=== PATIENT | female | born 1985 | race Two or more races ===

== ENCOUNTER 2017-07-13 19:30 | Emergency (ER) | payer SELFPAY ==
[~2017-07-13] VITALS: Ht 160 cm; Wt 63.5 kg
[2017-07-13] MEDS ORDERED: IV NORMAL SALINE 1000ML BAG 1,000 ML IV ONE (20:30)
[2017-07-13] MEDS ORDERED: diphenhydrAMINE 50 MG/ML VIAL IVP ONE (20:30)
[2017-07-13] MEDS ORDERED: DEXAMETHASONE SOD PHOS 20 MG/5 ML VIAL. IV ONE (20:30)
[2017-07-13] MEDS ORDERED: KETOROLAC 30 MG/ML INJ. IV ONE (20:30)
[2017-07-13] MEDS ORDERED: PROCHLORPERAZINE 10 MG/2 ML VIAL. IV ONE (20:30)
[2017-07-13] MEDS ORDERED: PROM25TA10 PO (21:11)
[2017-07-13] MEDS ORDERED: SUMA50TA3 PO (21:11)
--- NOTE | 2017-07-13 21:12 | PHYS DOC ---
Past Medical History Past Medical History: No Pertinent History Past Surgical History: No Surgical History Alcohol Use: None Drug Use: None Adult General Chief Complaint Chief Complaint: HEADACHE HPI HPI Patient is a 31 year old female who presents with a throbbing moderate left- sided headache with nausea and vomiting that began today. Patient denies any fever. Patient states her headache is exacerbated with light. She states she has previous history of similar headaches. Denies this being the worst headache in her life. [employer] line was used for Hebrew. Review of Systems Review of Systems Constitutional: Denies fever or chills [] Eyes: Denies change in visual acuity, redness, or eye pain [] HENT: Denies nasal congestion or sore throat [] Respiratory: Denies cough or shortness of breath [] Cardiovascular: No additional information not addressed in HPI [] GI: Reports nausea and vomiting. Denies abdominal pain, bloody stools or diarrhea [] : Denies dysuria or hematuria [] Musculoskeletal: Left sided headache Integument: Denies rash or skin lesions [] Neurologic: Denies headache, focal weakness or sensory changes [] All other systems were reviewed and found to be within normal limits, except as documented in this note. Current Medications Current Medications Current Medications Medications (Trade) Dose Ordered Sig/Yady Start Time Stop Time Status Last Admin Dose Admin Dexamethasone Sodium Phosphate (Decadron) 10 mg 1X ONCE 07/13/17 20:30 07/13/17 20:31 DC 07/13/17 20:27 10 MG Diphenhydramine HCl (Benadryl) 25 mg 1X ONCE 07/13/17 20:30 07/13/17 20:31 DC 07/13/17 20:27 25 MG Ketorolac Tromethamine (Toradol) 30 mg 1X ONCE 07/13/17 20:30 07/13/17 20:31 DC 07/13/17 20:26 30 MG Prochlorperazine Edisylate (Compazine) 10 mg 1X ONCE 07/13/17 20:30 07/13/17 20:31 DC 07/13/17 20:26 10 MG Sodium Chloride 1,000 ml @ 1,000 mls/hr 1X ONCE 07/13/17 20:30 07/13/17 21:29 07/13/17 20:28 1,000 MLS/HR Allergies Allergies Allergies Coded Allergies Type Severity Reaction Last Updated Verified No Known Drug Allergies 10/23/15 No Physical Exam Physical Exam Constitutional: Well developed, well nourished, no acute distress, non-toxic appearance. [] HENT: Normocephalic, atraumatic, bilateral external ears normal, oropharynx moist, no oral exudates, nose normal. [] Eyes: PERRLA, EOMI, conjunctiva normal, no discharge. [] Neck: Normal range of motion, no tenderness, supple, no stridor. [] Cardiovascular:Heart rate regular rhythm, no murmur [] Lungs & Thorax: Bilateral breath sounds clear to auscultation [] Abdomen: Bowel sounds normal, soft, no tenderness, no masses, no pulsatile masses. [] Skin: Warm, dry, no erythema, no rash. [] Back: No tenderness, no CVA tenderness. [] Extremities: No tenderness, no cyanosis, no clubbing, ROM intact, no edema. [] Neurologic: Alert and oriented X 3, normal motor function, normal sensory function, no focal deficits noted. Cranial nerves II through XII intact Psychologic: Affect normal, judgement normal, mood normal. [] Current Patient Data Vital Signs Vital Signs Date Time Temp Pulse Resp B/P (MAP) Pulse Ox O2 Delivery O2 Flow Rate FiO2 07/13/17 20:06 99.1 88 20 164/78 (106) 99 Room Air 99.1 Lab Values Laboratory Tests Test 07/13/17 20:09 POC Urine HCG, Qualitative Hcg negative (Negative) EKG EKG [] Radiology/Procedures Radiology/Procedures [] Course & Med Decision Making Course & Med Decision Making Pertinent Labs and Imaging studies reviewed. (See chart for details) Patient is in the ED with a headache consistent of a migraine headache. She was given 1 L of IV fluids Toradol, Compazine, and Benadryl with good relief. She' ll be discharged with Imitrex and follow-up with her PCP. Amanda Disclaimer Amanda Disclaimer This electronic medical record was generated, in whole or in part, using a voice recognition dictation system. Departure Departure Impression: Primary Impression: Migraine headache Disposition: HOME, SELF-CARE Condition: STABLE Referrals: NO PCP (PCP) DIANE SINHA MD follow up with your doctor in one week or the provided doctor Patient Instructions: Migraine Headache, [id number] Additional Instructions: You were seen with a migraine headache. Take the prescribed medicines as needed and ordered. Follow-up with your own doctor in 1-2 weeks. Scripts Sumatriptan Succinate (IMITREX) 50 Mg Tablet 1 TAB PO UD, #9 TAB 1 Refill Prov: ROXANN JAMES APRN 07/13/17 Promethazine Hcl (PROMETHAZINE HCL) 25 Mg Tablet 1 TAB PO PRN Q6HRS, #20 TAB Prov: ROXANN JAMES APRN 07/13/17 Problem Qualifiers Primary Impression: Migraine headache Migraine type: without aura Status migrainosus presence: without status migrainosus Intractability: not intractable Qualified Codes: G43.009 - Migraine without aura, not intractable, without status migrainosus ROXANN JAMES APRN Jul 13, 2017 21:12
[2017-07-13 21:29] VITALS: BP 122/63
== END 2017-07-13 21:51 | disposition home or self-care (01) ==
LOC: ER 19:30
DX: G43.909 Migraine, unspecified, not intractable, without status migrainosus (principal)
CPT/HCPCS: 81025; 96361; 96374; 96375; 99284; J0780; J1100; J1200; J1885; J7030

== ENCOUNTER 2017-07-14 02:29 | Emergency (ER) | payer SELFPAY ==
[~2017-07-14] VITALS: Ht 152.4 cm; Wt 63.5 kg
[~2017-07-14 02:29] MED LIST: PROM25TA10 PO; SUMA50TA3 PO
--- NOTE | 2017-07-14 02:35 | PHYS DOC ---
Past Medical History Past Medical History: No Pertinent History Past Surgical History: No Surgical History Alcohol Use: None Drug Use: None Adult General Chief Complaint Chief Complaint: DIZZY/LIGHT HEADED HPI HPI Patient is a 31 year old female who presents with dizziness, shortness of breath, dry lips, dry mouth. She was seen earlier today and vomited twice and had a headache. She was given Compazine, Benadryl, Toradol and discharged home with Imitrex and Phenergan. She was unable to get these filled because pharmacies closed. She presents back complaining of the above symptoms. She states she has no past medical history, she is on no medicines. She states she feels short of breath worse when she lays flat. She states all these symptoms started after she received the Compazine, Benadryl, Toradol, and accommodation. Review of Systems Review of Systems Constitutional: Denies fever or chills [] Eyes: Denies change in visual acuity, redness, or eye pain [] HENT: Denies nasal congestion or sore throat [] Respiratory: Denies cough, positive for shortness of breath [] Cardiovascular: No additional information not addressed in HPI [] GI: Denies abdominal pain, nausea, vomiting, bloody stools or diarrhea [] : Denies dysuria or hematuria [] Musculoskeletal: Denies back pain or joint pain [] Integument: Denies rash or skin lesions [] Neurologic: Denies headache, focal weakness or sensory changes [] Endocrine: Denies polyuria or polydipsia [] All other systems were reviewed and found to be within normal limits, except as documented in this note. Current Medications Current Medications Current Medications Medications (Trade) Dose Ordered Sig/Yady Start Time Stop Time Status Last Admin Dose Admin Sodium Chloride 1,000 ml @ 1,000 mls/hr Q1H 07/14/17 03:00 07/14/17 03:59 DC 07/14/17 03:25 1,000 MLS/HR Allergies Allergies Allergies Coded Allergies Type Severity Reaction Last Updated Verified No Known Drug Allergies 10/23/15 No Physical Exam Physical Exam Constitutional: Well developed, well nourished, no acute distress, non-toxic appearance. [] HENT: Normocephalic, atraumatic, bilateral external ears normal, oropharynx moist, no oral exudates, nose normal. [] Eyes: PERRLA, EOMI, conjunctiva normal, no discharge. [] Neck: Normal range of motion, no tenderness, supple, no stridor. [] Cardiovascular:Heart rate regular rhythm, no murmur [] Lungs & Thorax: Bilateral breath sounds clear to auscultation [] Abdomen: Bowel sounds normal, soft, no tenderness, no masses, no pulsatile masses. [] Skin: Warm, dry, no erythema, no rash. [] Back: No tenderness, no CVA tenderness. [] Extremities: No tenderness, no cyanosis, no clubbing, ROM intact, no edema. [] Neurologic: Alert and oriented X 3, normal motor function, normal sensory function, no focal deficits noted. [] Psychologic: Affect normal, judgement normal, mood normal. [] Current Patient Data Vital Signs Vital Signs Date Time Temp Pulse Resp B/P (MAP) Pulse Ox O2 Delivery O2 Flow Rate FiO2 07/14/17 02:40 98.6 99 16 145/85 (105) 97 Room Air 98.6 Lab Values Laboratory Tests Test 07/14/17 02:15 07/14/17 03:10 Urine Collection Type Unknown Urine Color Yellow Urine Clarity Clear Urine pH 7.0 Urine Specific [place] 1.010 Urine Protein Negative mg/dL (NEG-TRACE) Urine Glucose (UA) 100 mg/dL (NEG) Urine Ketones (Stick) Negative mg/dL (NEG) Urine Blood Negative (NEG) Urine Nitrite Negative (NEG) Urine Bilirubin Negative (NEG) Urine Urobilinogen Dipstick 0.2 mg/dL (0.2 mg/dL) Urine Leukocyte Esterase Negative (NEG) Urine RBC 0 /HPF (0-2) Urine WBC Occ /HPF (0-4) Urine Squamous Epithelial Cells Few /LPF Urine Bacteria 0 /HPF (0-FEW) Urine Mucus Slight /LPF White Blood Count 6.4 x10^3/uL (4.0-11.0) Red Blood Count 4.43 x10^6/uL (3.50-5.40) Hemoglobin 13.9 g/dL (12.0-15.5) Hematocrit 40.8 % (36.0-47.0) Mean Corpuscular Volume 92 fL (79-100) Mean Corpuscular Hemoglobin 32 pg (25-35) Mean Corpuscular Hemoglobin Concent 34 g/dL (31-37) Red Cell Distribution Width 13.1 % (11.5-14.5) Platelet Count 183 x10^3/uL (140-400) Neutrophils (%) (Auto) 83 % (31-73) H Lymphocytes (%) (Auto) 15 % (24-48) L Monocytes (%) (Auto) 1 % (0-9) Eosinophils (%) (Auto) 0 % (0-3) Basophils (%) (Auto) 0 % (0-3) Neutrophils # (Auto) 5.3 x10^3uL (1.8-7.7) Lymphocytes # (Auto) 1.0 x10^3/uL (1.0-4.8) Monocytes # (Auto) 0.1 x10^3/uL (0.0-1.1) Eosinophils # (Auto) 0.0 x10^3/uL (0.0-0.7) Basophils # (Auto) 0.0 x10^3/uL (0.0-0.2) D-Dimer (Alma Delia) 0.34 ug/mlFEU (0.00-0.50) Sodium Level 141 mmol/L (136-145) Potassium Level 3.6 mmol/L (3.5-5.1) Chloride Level 103 mmol/L (98-107) Carbon Dioxide Level 24 mmol/L (21-32) Anion Gap 14 (6-14) Blood Urea Nitrogen 10 mg/dL (7-20) Creatinine 0.7 mg/dL (0.6-1.0) Estimated GFR (Cockcroft-Gault) 96.4 BUN/Creatinine Ratio 14 (6-20) Glucose Level 176 mg/dL (70-99) H Calcium Level 9.2 mg/dL (8.5-10.1) Magnesium Level 2.1 mg/dL (1.8-2.4) Total Bilirubin 0.5 mg/dL (0.2-1.0) Aspartate Amino Transferase (AST) 36 U/L (15-37) Alanine Aminotransferase (ALT) 97 U/L (14-59) H Alkaline Phosphatase 96 U/L (46-116) Creatine Kinase 144 U/L (26-192) Creatine Kinase MB (Mass) 1.0 ng/mL (0.0-3.6) Creatine Kinase MB Relative Index 0.7 % (0-4) Troponin I Quantitative < 0.017 ng/mL (0.000-0.055) NG-Mfn-V-Type Natriuretic Peptide 91 pg/mL (0-124) Total Protein 8.2 g/dL (6.4-8.2) Albumin 4.5 g/dL (3.4-5.0) Albumin/Globulin Ratio 1.2 (1.0-1.7) Serum Test, Qualitative Negative (NEG) Laboratory Tests 07/14/17 03:10 Laboratory Tests 07/14/17 03:10 EKG EKG EKG shows sinus rhythm rate [address] elevations or concerning T- wave inversions, normal axis, QTC 456 ms, as interpreted by me. Radiology/Procedures Radiology/Procedures View chest x-ray did not show any focal consolidations, bony abnormality's, pneumothorax, as interpreted by me. Impressions: Dizziness-resolved Hypoglycemia Course & Med Decision Making Course & Med Decision Making Pertinent Labs and Imaging studies reviewed. (See chart for details) Her EKG, chest x-ray, labs, d-dimer all within normal limits. Patient feels better. She's being discharged home to follow-up primary care physician. She is instructed to fill her prescription she got earlier for Imitrex and Phenergan. Return ER for fevers shortness breath chest discomfort other concerns. Dragon Disclaimer Dragon Disclaimer This electronic medical record was generated, in whole or in part, using a voice recognition dictation system. Departure Departure Impression: Primary Impression: Dizziness Disposition: 01 HOME, SELF-CARE Condition: STABLE Referrals: NO PCP (PCP) Patient Instructions: Dizziness, [id number] Additional Instructions: You were seen tonight for dizziness, shortness of breath, dry lips and dry mouth. Your workup in the ER did not show any abnormalities. Your feeling better at this time. Your being discharged home. Please fill your prescriptions from earlier today for your migraine headache and take these if your migraines return. He should follow-up with her primary care physician. We provided you a list of primary care physicians. Please pick one and call them and schedule follow-up appointment. If your shortness of breath, dizziness, or other symptoms return, please return back to emergency department. EVA FISH MD Jul 14, 2017 02:35
[2017-07-14] MEDS ORDERED: IV NORMAL SALINE 1000ML BAG 1,000 ML IV SCH (03:00)
[2017-07-14 04:02] LABS: BILIRUBIN,URINE NEGATIVE (NEG); GLUCOSE,URINE 100 mg/dL (NEG); NITRITE,URINE NEGATIVE (NEG); PROTEIN,URINE NEGATIVE (NEG-TRACE); UROBILINOGEN,URINE 0.2 mg/dL (0.2 mg/dL)
[2017-07-14 04:03] LABS: BASO % 0 % (0-3); EOS % 0 % (0-3); HEMATOCRIT 40.8 % (36.0-47.0); HEMOGLOBIN 13.9 g/dL (12.0-15.5); LYMPH % 15 % (24-48); MEAN CORPUSCULAR HEMOGLOBIN 32 pg (25-35); MEAN CORPUSCULAR HGB CONC 34 g/dL (31-37); MEAN CORPUSCULAR VOLUME 92 fL (79-100); MONO % 1 % (0-9); NEUT % 83 % (31-73); PLATELET COUNT 183 x10^3/uL (140-400); RED BLOOD COUNT 4.43 x10^6/uL (3.50-5.40); RED CELL DISTRIBUTION WIDTH 13.1 % (11.5-14.5); WHITE BLOOD COUNT 6.4 x10^3/uL (4.0-11.0)
[2017-07-14 04:08] LABS: BACTERIA,URINE 0 /HPF (0-FEW); RBC,URINE 0 /HPF (0-2); SQUAMOUS EPITHELIAL CELL,UR FEW /LPF; WBC,URINE OCC /HPF (0-4)
[2017-07-14 04:12] LABS: CALCIUM 9.2 mg/dL (8.5-10.1); CREATININE 0.7 mg/dL (0.6-1.0); GFR 96.4; POTASSIUM 3.6 mmol/L (3.5-5.1)
[2017-07-14 04:15] LABS: NEG OBC SER NEG; POS OBC SER POS
[2017-07-14 04:18] LABS: ALBUMIN 4.5 g/dL (3.4-5.0); ALBUMIN/GLOBULIN RATIO 1.2 (1.0-1.7); MAGNESIUM 2.1 mg/dL (1.8-2.4); TOTAL BILIRUBIN 0.5 mg/dL (0.2-1.0); TOTAL PROTEIN 8.2 g/dL (6.4-8.2)
[2017-07-14 05:20] VITALS: BP 117/74
--- NOTE | 2017-07-14 06:13 | EKG ---
[facility] [address] [place] [address] Test Date: 2017-07-14 Test Time: 03:02:41 Pat Name: OMI MAURER Department: Room: Gender: F Leave Manager: : 1985 Requested By: EVA FISH Order Number: [id number] Reading MD: Measurements Intervals [place] Rate: 95 P: 53 IA: 134 QRS: 49 QRSD: 80 T: 41 QT: 360 QTc: 456 Interpretive Statements SINUS RHYTHM NO SPECIFIC ECG ABNORMALITIES RI6.01 No previous ECG available for comparison
--- NOTE | 2017-07-14 07:10 | RAD ---
Portable chest, 07/14/2017: History: Shortness of breath The heart size and pulmonary vascularity are normal. The lungs are clear. There is no evidence of pleural fluid. IMPRESSION: No acute cardiopulmonary abnormality is detected.
== END 2017-07-14 05:21 | disposition home or self-care (01) ==
LOC: ER 02:29
DX: R42 Dizziness and giddiness (principal); R06.02 Shortness of breath; R68.2 Dry mouth, unspecified; R51 Headache; R11.10 Vomiting, unspecified; E16.2 Hypoglycemia, unspecified
CPT/HCPCS: 36415; 71010; 80053; 81001; 82553; 83735; 83880; 84484; 84703; 85025; 85379; 93005; 96360; 96361; 99285; J7030